=== PATIENT | male | born 1985 | race American Indian/Alaskan Native ===

== ENCOUNTER 2020-10-16 20:26 | Emergency (ER) | payer MEDICAID, OTHER ==
[~2020-10-16] VITALS: Ht 180.3 cm; Wt 85.7 kg
[2020-10-16 20:26] VITALS: BP 119/70
== END 2020-10-16 22:23 | disposition left against medical advice (07) ==
LOC: ER 20:29
DX: R06.02 Shortness of breath (principal); Z53.21 Procedure and treatment not carried out due to patient leaving prior to being seen by health care provider